=== PATIENT | female | born 1980 | race Caucasian/White ===

== ENCOUNTER 2024-01-24 19:31 | Emergency (ER) | payer OTHER, MEDICAID, SELFPAY ==
--- NOTE | ~2024-01-24 | CT_ITS ---
EXAMINATION: CT ABDOMEN AND PELVIS WITHOUT CONTRAST CLINICAL INFORMATION: Flank pain. COMPARISON: None available. TECHNIQUE: Multidetector volumetric imaging was performed from the superior aspect of the liver through the pubic symphysis. Sagittal and coronal reformatted images were obtained on the 3 mm distal right ureteric calculus. Workstation. This CT examination was performed using dose optimization techniques as appropriate, variously including the following: *Automated exposure control *Adjustment of mA and/or kV according to patient size (this includes techniques or standardized protocols for targeted exams where dose is matched to indication/reason for exam; i.e. extremities or head) *Use of iterative reconstruction technique DLP: 503 mGy-cm FINDINGS: LUNG BASES: The visualized lung bases are unremarkable. LIVER, GALLBLADDER, AND BILIARY TREE: The liver is normal in size, shape, and attenuation. No focal hepatic lesion or biliary ductal dilatation is present. The gallbladder is unremarkable with no evidence of radiopaque gallstones, gallbladder wall thickening, or obvious pericholecystic inflammatory changes. PANCREAS: Unremarkable. SPLEEN: Unremarkable. ADRENAL GLANDS: Unremarkable. KIDNEYS AND URETERS: The kidneys are normal in size, shape, and attenuation. No renal calculi are seen. There is mild right hydronephrosis and hydroureter extending into the pelvis to the level of a 3 mm distal right ureteric calculus. BLADDER: Unremarkable. GASTROINTESTINAL TRACT: The small and large bowel are unremarkable. The appendix is unremarkable. ABDOMINAL WALL: No significant hernia is appreciated. LYMPH NODES: Normal. VASCULAR: Unremarkable. PELVIC VISCERA: There is a small amount of free fluid within the pelvis. OSSEOUS STRUCTURES: There is moderate L5-S1 disc degenerative change. CT/CT abdomen pelvis wo IV con IMPRESSION: 1. There is mild right hydronephrosis and hydroureter extending into the pelvis to the level of a 3 mm distal right ureteric calculus. 2. There is a small amount of free fluid within the pelvis. 3. There is moderate L5-S1 disc degenerative change. Fleischner guidelines were followed. Electronically signed by: Gopal Hunter MD 01/25/2024 02:07 AM CAR
--- NOTE | ~2024-01-24 | XR_ITS ---
EXAMINATION: XR LUMBOSACRAL SPINE CLINICAL INFORMATION: pain, worse on R, x 2 wks COMPARISON: None available. TECHNIQUE: Three views of the lumbosacral spine. FINDINGS: There are 5 nonrib-bearing lumbar vertebrae. Lumbar spinal alignment is anatomic in the sagittal projection. Vertebral body heights are preserved. There is moderate narrowing of the L5-S1 intervertebral disc space. There is endplate sclerosis at this level. There is mild facet arthropathy at this level. No acute fracture. The sacroiliac joints are intact. Paraspinal soft tissue is normal in appearance. XR/XR lumbar spine 2-3V IMPRESSION: No acute osseous lumbar spine abnormality. Degenerative disease at L5-S1. Electronically signed by: Toño Castro DO 01/24/2024 09:44 PM EST
[2024-01-24 19:55] VITALS: BP 143/76; PULSE 77; RESP 18; TEMP 37; O2SAT 98; BMI 23.4
--- NOTE | 2024-01-24 19:58 | ED.GENADULT ---
HPI - General Adult General Chief complaint: Back Pain/Injury Stated complaint: lower back pain x 2 wks Time Seen by Provider: 01/24/24 21:14 Source: patient Mode of arrival: ambulatory Limitations: no limitations History of Present Illness ED Provider: Rebecca Allen NP HPI narrative: patient is a 43-year-old female presents emergency department for evaluation. She reports that she has had issues with intermittent back pain over the past year so. Over the past 2 weeks she has been experiencing pain particularly to her right lower back / flank. Pain is now radiating to her mid lower abdomen described as a burning sensation. Over the past 2 days pain has been severe and more constant. Reports that she was evaluated at an urgent care multiple times for this, has been checked for urinary tract infection which has been negative. Denies recent precipitating injury, fevers, chills, burning with micturition, urinary frequency/urgency/hesitancy, bladder or bowel dysfunction, numbness or tingling of the perineum or bilateral legs. Denies any recent surgical procedures, any known immune compromising conditions, personal history of cancer, or IV drug usage. Related Data Home Medications ?Medication ?Instructions ?Recorded ?Confirmed alprazolam 0.5 mg disintegrating 0.5 mg PO BEDTIME PRN 10/02/21 tablet alprazolam 0.5 mg tablet (Xanax) 0.5 mg PO BEDTIME PRN 10/02/21 bupropion HCl 300 mg 24 hr tablet, 300 mg PO QAM 10/02/21 extended release (Wellbutrin XL) buspirone 10 mg tablet 10 mg PO BID 10/02/21 citalopram 40 mg tablet (Celexa) 40 mg PO DAILY 10/02/21 levothyroxine 100 mcg tablet 100 mcg PO DAILY 10/02/21 (Levo-T) oxybutynin chloride 5 mg tablet 5 mg PO BEDTIME PRN 10/02/21 Previous Rx's ?Medication ?Instructions ?Recorded ciprofloxacin HCl 250 mg tablet 250 mg PO BID 3 days #6 tabs 10/02/21 (Cipro) phenazopyridine 100 mg tablet 100 mg PO TID PRN pain 3 days #9 10/02/21 (Pyridium) tabs morphine 15 mg immediate release 15 mg PO Q6H PRN pain #7 tabs 01/25/24 tablet naproxen 500 mg tablet (Naprosyn) 500 mg PO BID PRN pain #14 tabs 01/25/24 tamsulosin 0.4 mg capsule 0.4 mg PO BEDTIME #14 caps 01/25/24 Allergies Allergy/AdvReac Type Severity Reaction Status Date / Time acetaminophen [From Percocet] Allergy Intermediate nausea, Verified 01/24/24 19:58 vomiting oxycodone [From Percocet] Allergy Intermediate nausea, Verified 01/24/24 19:58 vomiting Review of Systems Review of Systems: Yes all other systems are reviewed and are negative [facility] Past Medical History Attestation statement: The following information was validated with the patient. Source: old records reviewed Social History Social History Advance Directives: No Advance Directives Information Provided: No Patient : No Physical Exam ED Vital Signs: Vital Signs - 24 hr 01/24/24 19:55 01/24/24 22:59 01/24/24 23:04 Temperature 98.6 F 98.3 F 97.9 F Pulse Rate 77 85 69 Respiratory Rate 18 16 18 Blood Pressure 143/76 H 149/85 H 124/89 Pulse Oximetry 98 98 Oxygen Delivery Method Room Air Room Air BMI result Body Mass Index 23.4 Appearance: Alert.?Oriented to person, place and time. No acute distress.?Normal affect. Eyes: Pupils equal, round and reactive to light.? ENT: Pharynx normal.?? Neck: Normal inspection.? Neck supple.?? CVS: Heart sounds normal. Normal heart rate and rhythm.? Pulses normal; bilateral radial pulses 2+, bilateral posterior tibial/dorsalis pedis pulses 2+.? Respiratory: No respiratory distress.? Lung sounds clear to auscultation bilaterally?? Abdomen: Soft and non-tender. Normoactive bowel sounds. No pulsatile mass.?? Skin: Skin warm and dry.? Normal skin color.? Normal skin turgor.?? Extremities: No lower extremity edema.? No calf ttp? Back: + mild paraspinal muscular tenderness from lumbar region to coccyx. Right CVA tenderness. No midline spinal tenderness, step-off's, or deformity. Full ROM intact in bilateral lower extremities. Straight leg test negative on right; Straight leg test negative on left. No rashes, lesions, areas of induration or fluctuance, or signs of infection noted., Neuro: Moves all extremities spontaneously. 5/5 strength in hip extension/flexion, abduction, adduction. Sensation to light touch intact bilaterally. Patellar and Achilles reflex 2+ bilaterally. No ataxia, gait normal and steady.. No focal neuro deficits. Course Course Course Narrative: This is a rapid medical exam performed by Fred Park NP: Additional HPI, ROS, PE not included below will be deferred to primary provider. Patient is a 43-year-old female presenting to the ED with complaint of right lower back pain for the past 2 weeks. Denies fall or other trauma. Seen at urgent care initially, told not a UTI. Returned to today and medicated with Toradol shot. Pain continuing. Denies saddle anesthesia/bowel/bladder incontinence. Plan: xray Medications Administered Discontinued Medications Generic Name Dose Route Start Last Admin Trade Name Freq PRN Reason Stop Dose Admin Ketorolac Tromethamine 15 mg 01/24/24 22:51 01/24/24 23:06 Ketorolac Tromethamine 15 Mg/Ml Vial IVPUSH 01/24/24 22:52 15 mg ONCE ONE Administration Medical Decision Making Medical Decision Making [facility] Narrative: patient is a 43 old female presents emergency department for evaluation, has been experiencing acute on chronic back pain as per HPI, over the past 2 weeks pain to the right flank has been more severe, previously intermittent in nature but constant over the past 2 days now radiating to the mid lower abdomen. Is notable right CVAT, urinalysis obtained prior to my assumption of care reveals microscopic hematuria she is not currently menstruating. Urinalysis is not otherwise compelling for urinary tract infection and were hCG is negative The pain is unlikely secondary to ectopic . XR of the lumbar spine reveals degenerative disease at L5-S1, no acute fracture. Serum labs are without leukocytosis, has a mild normocytic anemia that does not meet transfusion criteria, thrombocytopenia. No electrolyte derangement. No PATRICK. LFTs within normal range. CT abdomen and pelvis reveals mild right hydro and hydroureter with a 3 mm distal right ureteral calculus like all. Reviewed these findings with the patient, pain secondary to renal colic most likely. Discussed plan care for outpatient treatment, follow-up with urology and strict return precautions. All questions answered. Differential Diagnosis Differential Diagnoses: The differential diagnosis associated with the presentation includes ( see narrative above) Admission/Observation Consideration of admission/observation: Escalation of care including admission/observation considered ( see narrative above) Lab Data MDM Lab Attestation statement: I reviewed the patient's lab results. ( see narrative above) 01/24/24 23:13 01/24/24 23:13 Labs: Lab Results 01/24/24 01/24/24 Range/Units 20:47 23:13 WBC 10.2 (4.8-10.8) X10*3/uL RBC 4.06 L (4.20-5.50) X10*6/uL Hgb 11.9 L (12.0-16.0) g/dl Hct 35.2 L (37.0-47.0) % MCV 86.7 (80.0-98.0) fL MCH 29.3 (27.0-33.0) pg MCHC 33.8 (31.0-35.0) g/dl RDW 13.1 (11.0-16.0) % Plt Count 289 (160-400) X10*3/uL MPV 8.2 L (9.4-12.3) fL Immature Gran % (Auto) 0.3 (0.0-0.4) % Neut % (Auto) 59.2 (45-73) % Lymph % (Auto) 31.0 (20-40) % [place] % (Auto) 5.7 (2-11) % Eos % (Auto) 3.1 (0-4) % Baso % (Auto) 0.7 (0-2) % Lymph # (Auto) 3.2 (1.2-4.9) X10*3/uL [place] # (Auto) 0.6 (0.1-1.2) X10*3/uL Eos # (Auto) 0.3 (0.0-0.4) X10*3/uL Baso # (Auto) 0.1 (0.0-0.2) X10*3/uL Abs Immat Gran (auto) 0.03 (0.00-0.03) X10*3/uL Absolute Neuts (auto) 6.0 (2.0-8.3) x10*3/uL Absolute Nucleated RBC 0.000 (0.0-0.012) X10*3/uL Nucleated RBC % (auto) 0.0 (0.0-0.2) /100WBC Sodium 138 (135-145) mmol/L Potassium 3.7 (3.3-5.1) mmol/L Chloride 104 (96-108) mmol/L Carbon Dioxide 27 (22-29) mmol/L Anion Gap 11 L (12-20) BUN 15 (9-16) mg/dL Creatinine 0.73 (0.5-1.4) mg/dL Estim Creat Clear Calc 93.0 Estimated GFR > 60 Random Glucose 97 (60-115) mg/dL Calcium 9.5 (8.4-10.2) mg/dL Total Bilirubin 0.2 (0.0-1.0) mg/dL AST 28 (5-31) U/L ALT 24 (0-31) U/L Alkaline Phosphatase 44 (39-117) U/L Total Protein 6.9 (6.5-8.0) g/dL Albumin 4.2 (3.5-5.0) g/dL Urine Color Yellow Urine Appearance Clear Urine pH 6.0 (5.0-9.0) Ur Specific [place] 1.020 (1.005-1.025) Urine Protein Negative (Neg-Trace) mg/dL Urine Glucose (UA) Negative (Negative) mg/dL Urine Ketones Trace (Negative) mg/dL Urine Blood Trace H (Negative) Urine Nitrite Negative (Negative) Ur Leukocyte Esterase Trace H (Negative) Urine RBC 0-2 (0-2) /HPF Urine WBC 0-5 (0-5) /HPF Ur Squamous Epith Cells 6-10 (0-2) /HPF Urine Bacteria Trace (None Seen) Hyaline Casts 0-2 (0-2) /LPF Urine Yeast Present Urine Test NEGATIVE (NEGATIVE) Radiology Impression Discussion of test interpretation with radiology: I have reviewed the radiologist's reading. Radiologist Impression: XR/XR lumbar spine 2-3V IMPRESSION: No acute osseous lumbar spine abnormality. Degenerative disease at L5-S1. CT/CT abdomen pelvis wo IV con IMPRESSION: 1. There is mild right hydronephrosis and hydroureter extending into the pelvis to the level of a 3 mm distal right ureteric calculus. 2. There is a small amount of free fluid within the pelvis. 3. There is moderate L5-S1 disc degenerative change. External Record Review External record reviewed: Other I attest that I have reviewed patients Mass[employer], and at the time prescribing the patient a controlled substance is appropriate based off of patients diagnosis and treatment plan. advised against usage of morphine tablets using junction with Xanax. Prescription Management I considered prescription management with: Pain Medication Discharge Plan Discharge Clinical Impression: Right ureteral calculus Patient Disposition: Home, Self-Care Instructions: How to Strain Your Urine (ED), Ureteral Stones (ED) Additional Instructions: you have a stone in your right ureter which is the tube that drains the urine from your kidney to your bladder. As kidney stones knees along. Your urinary tract can be very painful. It can have an intermittent pain as you have previously experienced and at times the pain may become more severe. Stone is small enough that you should be able to pass it on your own. Contact urology office 1st thing tomorrow morning to arrange for a follow-up visit. I have sent prescriptions for medication to your pharmacy that include the followin. Tamsulosin /Flomax, take this daily at bedtime to help dilate the ureter to allow for easier passage of the stone. 2. Naproxen/ aleave, this is an NSAID to help alleviate pain. Do not take additional [id number] NSAIDs such as ibuprofen/ Motrin / Advil while taking this medication. 3. For Severe pain that is unrelieved by the naproxen I have sent a prescription for morphine tablets. This is a narcotic medication. It can be addictive. This may make you drowsy. You should not drive, drink alcohol, or work while taking this medication. DO NOT TAKE THIS WITH YOUR XANAX Prescriptions: New tamsulosin 0.4 mg capsule 0.4 mg PO BEDTIME Qty: 14 0RF naproxen [Naprosyn] 500 mg tablet 500 mg PO BID PRN (Reason: pain) Qty: 14 0RF morphine 15 mg tablet 15 mg PO Q6H PRN (Reason: pain) Qty: 7 0RF Rx Instructions: Partial Fill upon patient request. No Action citalopram [Celexa] 40 mg tablet 40 mg PO DAILY bupropion HCl [Wellbutrin XL] 300 mg tablet extended release 24 hr 300 mg PO QAM alprazolam [Xanax] 0.5 mg tablet 0.5 mg PO BEDTIME PRN buspirone 10 mg tablet 10 mg PO BID levothyroxine [Levo-T] 100 mcg tablet 100 mcg PO DAILY oxybutynin chloride 5 mg tablet 5 mg PO BEDTIME PRN alprazolam 0.5 mg tablet,disintegrating 0.5 mg PO BEDTIME PRN phenazopyridine [Pyridium] 100 mg tablet 100 mg PO TID PRN (Reason: pain) 3 Days Qty: 9 0RF ciprofloxacin HCl [Cipro] 250 mg tablet 250 mg PO BID 3 Days Qty: 6 0RF Referrals: Terra Early MD [Physician] - Print Language: Tajik
[2024-01-24 20:55] LABS: Appearance Urine Clear; Color Urine Yellow; Glucose Urine UA Negative (Negative); Leukocyte Esterase Urine Trace (Negative); Nitrite Urine Negative (Negative); UMIC TRIGGER UACC YES; Urine Blood Trace (Negative); Urine Ketones Trace mg/dL (Negative); Urine Protein Negative (Neg-Trace)
[2024-01-24 20:56] LABS: UPreg QC Valid YES; Urine Pregnancy NEGATIVE (NEGATIVE)
[2024-01-24 21:13] LABS: Bacteria Urine Trace (None Seen); Hyaline Casts Urine 0-2 /LPF (0-2); RBC Urine 0-2 /HPF (0-2); WBC Urine 0-5 /HPF (0-5)
--- NOTE | 2024-01-24 22:56 | PC.NURSE ---
pt taken to CT scan
[2024-01-24 22:59] VITALS: BP 149/85; PULSE 85; RESP 16; TEMP 36.8; O2SAT 98
--- NOTE | 2024-01-24 23:01 | PC.NURSE ---
per MD Allen- okay to admin toradol IM
[2024-01-24 23:04] VITALS: BP 124/89; PULSE 69; RESP 18; TEMP 36.6
[2024-01-24] MEDS: Ketorolac Tromethamine 15 MG/ML VIAL IVPUSH (23:06)
--- NOTE | 2024-01-24 23:10 | PC.NURSE ---
pt medciated per MAR
[2024-01-24 23:18] LABS: MANUAL DIFF FLAG NO
[2024-01-24 23:19] LABS: Basophils Absolute Auto 0.1 X10*3/uL (0.0-0.2); Basophils Percent Auto 0.7 % (0-2); Eosinophils Absolute Auto 0.3 X10*3/uL (0.0-0.4); Eosinophils Percent Auto 3.1 % (0-4); Hematocrit 35.2 % (37.0-47.0); Hemoglobin 11.9 g/dl (12.0-16.0); Imm Gran Abs Auto 0.03 X10*3/uL (0.00-0.03); Imm Gran Pct Auto 0.3 % (0.0-0.4); Lymphocytes Absolute Auto 3.2 X10*3/uL (1.2-4.9); Mean Corpuscular HGB Conc 33.8 g/dl (31.0-35.0); Mean Corpuscular Hemoglobin 29.3 pg (27.0-33.0); Mean Corpuscular Volume 86.7 fL (80.0-98.0); Mean Platelet Volume 8.2 fL (9.4-12.3); Monocytes Absolute Auto 0.6 X10*3/uL (0.1-1.2); Monocytes Percent Auto 5.7 % (2-11); Neutrophils Percent Auto 59.2 % (45-73); Platelet Count 289 X10*3/uL (160-400); Red Blood Count 4.06 X10*6/uL (4.20-5.50); Red Cell Distribution Width 13.1 % (11.0-16.0); White Blood Count 10.2 X10*3/uL (4.8-10.8)
[2024-01-24 23:34] LABS: Alanine Aminotransferase 24 U/L (0-31); Albumin Level 4.2 g/dL (3.5-5.0); Alkaline Phosphatase 44 U/L (39-117); Anion Gap 11 (12-20); Aspartate Amino Transferase 28 U/L (5-31); Bilirubin Total 0.2 mg/dL (0.0-1.0); Blood Urea Nitrogen 15 mg/dL (9-16); Calcium 9.5 mg/dL (8.4-10.2); Carbon Dioxide 27 mmol/L (22-29); Chloride 104 mmol/L (96-108); Estimated Glomerular Filt Rate > 60; Glucose Random 97 mg/dL (60-115); Potassium 3.7 mmol/L (3.3-5.1); Sodium 138 mmol/L (135-145); Total Protein 6.9 g/dL (6.5-8.0)
[2024-01-25 02:28] VITALS: BP 124/89; PULSE 69; RESP 18; TEMP 36.6; O2SAT 98
== END 2024-01-25 02:31 | disposition home or self-care (01) ==
PROVIDERS: Nurse Practitioner Family; Registered Nurse Emergency; Emergency Provider Emergency Medicine; PCP Physician Assistant
DX: N20.1 Calculus of ureter (principal); M54.50 Low back pain, unspecified; R10.2 Pelvic and perineal pain; Z79.899 Other long term (current) drug therapy
CPT/HCPCS: 36415; 72100; 74176; 80053; 81001; 81025; 85025; 96374; 99284; J1885

== ENCOUNTER 2024-04-02 13:31 | Emergency (ER) | payer OTHER, MEDICAID, SELFPAY ==
--- NOTE | ~2024-04-02 | CT_ITS ---
CLINICAL HISTORY: right sided abd pain Exam: CT abdomen and pelvis with intravenous contrast. Comparison: January 24, 2024. Findings: CT abdomen: No infiltrates are identified within the lung bases. Unchanged densely calcified 4 mm granuloma within the left lower lobe. No acute bony lesions. Low-attenuation within the liver adjacent to the falciform ligament is indicative of focal fatty infiltration. No concerning hepatic mass lesion. Main portal vein is patent. Spleen, pancreas, gallbladder, and adrenal glands are unremarkable. Right-sided hydronephrosis on prior study is improved. However, there remains mild right hydronephrosis and right hydroureter. There is hyperenhancement of the distal right ureter at the level of a 3 mm calculus at the right ureterovesicular junction. No stones are seen within the right kidney. Left kidney is unremarkable. Small bowel loops are of normal caliber. No free fluid or free air. CT pelvis: Urinary bladder is moderately distended. No bladder calculi. No colonic wall thickening or pericolonic inflammatory stranding. No free fluid or free air. Impression: Mild right hydronephrosis and right hydroureter secondary to a 3 mm right ureterovesicular junction calculus. This document has been electronically signed by: Pawel Ibanez MD on 04/02/2024 23:02:20
[2024-04-02 14:02] VITALS: BP 125/83; PULSE 85; RESP 18; TEMP 36.7; O2SAT 100; BMI 25.2
--- NOTE | 2024-04-02 14:02 | ED_ITS ---
HPI - Abdominal Pain General Chief Complaint: Abdominal Pain Stated Complaint: LRQ pain vomiting Time Seen by Provider: 04/02/24 19:17 Related Data Home Medications ?Medication ?Instructions ?Recorded ?Confirmed alprazolam 0.5 mg disintegrating 0.5 mg PO BEDTIME PRN 10/02/21 tablet alprazolam 0.5 mg tablet (Xanax) 0.5 mg PO BEDTIME PRN 10/02/21 bupropion HCl 300 mg 24 hr tablet, 300 mg PO QAM 10/02/21 extended release (Wellbutrin XL) buspirone 10 mg tablet 10 mg PO BID 10/02/21 citalopram 40 mg tablet (Celexa) 40 mg PO DAILY 10/02/21 levothyroxine 100 mcg tablet 100 mcg PO DAILY 10/02/21 (Levo-T) oxybutynin chloride 5 mg tablet 5 mg PO BEDTIME PRN 10/02/21 Previous Rx's ?Medication ?Instructions ?Recorded ciprofloxacin HCl 250 mg tablet 250 mg PO BID 3 days #6 tabs 10/02/21 (Cipro) phenazopyridine 100 mg tablet 100 mg PO TID PRN pain 3 days #9 10/02/21 (Pyridium) tabs morphine 15 mg immediate release 15 mg PO Q6H PRN pain #7 tabs 01/25/24 tablet naproxen 500 mg tablet (Naprosyn) 500 mg PO BID PRN pain #14 tabs 01/25/24 tamsulosin 0.4 mg capsule 0.4 mg PO BEDTIME #14 caps 01/25/24 ibuprofen 400 mg tablet 400 mg PO Q6H PRN pain #20 tabs 04/02/24 ondansetron 4 mg disintegrating 4 mg PO TID PRN nausea and 04/02/24 tablet vomiting 5 days #10 tabs oxycodone 5 mg tablet 5 mg PO Q8H PRN pain #7 tabs 04/02/24 tamsulosin 0.4 mg capsule (Flomax) 0.4 mg PO DAILY #7 caps 04/02/24 Allergies Allergy/AdvReac Type Severity Reaction Status Date / Time acetaminophen [From Percocet] Allergy Intermediate nausea, Verified 04/02/24 14:05 vomiting oxycodone [From Percocet] Allergy Intermediate nausea, Verified 04/02/24 14:05 vomiting PMFSH Social History Social History Smoked in Last 30 Days: No Use of substances other than those prescribed or required for medical reasons: No Advance Directives: No Advance Directives Information Provided: No Do you have a plan to hurt others: No Plan Patient : No Physical Exam ED Vital Signs: Vital Signs - 24 hr 04/02/24 14:02 04/02/24 19:26 04/02/24 22:00 Temperature 98.1 F 98.3 F 98.5 F Pulse Rate 85 78 71 Respiratory Rate 18 17 18 Blood Pressure 125/83 130/71 114/75 Pulse Oximetry 100 100 100 Oxygen Delivery Method Room Air Room Air Room Air BMI result Body Mass Index 25.2 Course Course Course Narrative: This is a Rapid Medical Exam performed in triage by Jayleen Whiteside PA-C. Full HPI, ROS and PE to be performed by primary ED provider. 43yo F presenting to the ED c/o RLQ abdominal pain, N/V/D, urinary frequency x today after eating cereal. denies brbpr or hemetemasis, fever, chills PE: abdomen soft, +RLQ ttp, no rebound or guarding Plan: labs, UA Medical Decision Making Lab Data 04/02/24 14:21 04/02/24 14:21 Labs: Lab Results 04/02/24 04/02/24 Range/Units 14:21 19:34 WBC 9.3 (4.8-10.8) X10*3/uL RBC 4.13 L (4.20-5.50) X10*6/uL Hgb 12.0 (12.0-16.0) g/dl Hct 36.5 L (37.0-47.0) % MCV 88.4 (80.0-98.0) fL MCH 29.1 (27.0-33.0) pg MCHC 32.9 (31.0-35.0) g/dl RDW 13.2 (11.0-16.0) % Plt Count 291 (160-400) X10*3/uL MPV 8.6 L (9.4-12.3) fL Immature Gran % (Auto) 0.4 (0.0-0.4) % Neut % (Auto) 69.9 (45-73) % Lymph % (Auto) 18.9 L (20-40) % [place] % (Auto) 5.9 (2-11) % Eos % (Auto) 4.1 H (0-4) % Baso % (Auto) 0.8 (0-2) % Lymph # (Auto) 1.8 (1.2-4.9) X10*3/uL [place] # (Auto) 0.6 (0.1-1.2) X10*3/uL Eos # (Auto) 0.4 (0.0-0.4) X10*3/uL Baso # (Auto) 0.1 (0.0-0.2) X10*3/uL Abs Immat Gran (auto) 0.04 H (0.00-0.03) X10*3/uL Absolute Neuts (auto) 6.5 (2.0-8.3) x10*3/uL Absolute Nucleated RBC 0.000 (0.0-0.012) X10*3/uL Nucleated RBC % (auto) 0.0 (0.0-0.2) /100WBC Sodium 141 (135-145) mmol/L Potassium 3.7 (3.3-5.1) mmol/L Chloride 108 (96-108) mmol/L Carbon Dioxide 28 (22-29) mmol/L Anion Gap 9 L (12-20) BUN 13 (9-16) mg/dL Creatinine 0.81 (0.5-1.4) mg/dL Estim Creat Clear Calc 84.1 Estimated GFR > 60 Random Glucose 100 (60-115) mg/dL Calcium 9.0 (8.4-10.2) mg/dL Magnesium 2.1 (1.6-2.6) mg/dL Total Bilirubin 0.2 (0.0-1.0) mg/dL Direct Bilirubin < 0.2 (0.0-0.5) mg/dL AST 29 (5-31) U/L ALT 25 (0-31) U/L Alkaline Phosphatase 42 (39-117) U/L Total Protein 7.2 (6.5-8.0) g/dL Albumin 4.1 (3.5-5.0) g/dL Lipase 18 (8-78) U/L Urine Color Yellow Urine Appearance Clear Urine pH 7.0 (5.0-9.0) Ur Specific [place] 1.010 (1.005-1.025) Urine Protein Negative (Neg-Trace) mg/dL Urine Glucose (UA) Negative (Negative) mg/dL Urine Ketones Negative (Negative) mg/dL Urine Blood Negative (Negative) Urine Nitrite Negative (Negative) Ur Leukocyte Esterase Negative (Negative) Urine Test NEGATIVE (NEGATIVE) Medications Administered Discontinued Medications Generic Name Dose Route Start Last Admin Trade Name Freq PRN Reason Stop Dose Admin Sodium Chloride 1,000 mls @ 999 mls/hr 04/02/24 20:00 04/02/24 21:24 Ns IV 04/02/24 21:00 Infused .Q1H1M NOEL Infusion Iohexol 85 ml 04/02/24 22:03 04/02/24 22:03 Iohexol 350 Mg/Ml 100 Ml Infus..Btl IV 04/02/24 22:04 85 ml ONCE ONE Administration Ketorolac Tromethamine 30 mg 04/02/24 19:47 04/02/24 19:54 Ketorolac Tromethamine 30 Mg/Ml Vial IVPUSH 04/02/24 19:48 30 mg ONCE ONE Administration Discharge Plan Discharge Clinical Impression: Renal colic Patient Disposition: Home, Self-Care Instructions: Renal Colic (ED) Prescriptions: New tamsulosin [Flomax] 0.4 mg capsule 0.4 mg PO DAILY Qty: 7 0RF ibuprofen 400 mg tablet 400 mg PO Q6H PRN (Reason: pain) Qty: 20 0RF ondansetron 4 mg tablet,disintegrating 4 mg PO TID PRN (Reason: nausea and vomiting) 5 Days Qty: 10 0RF oxycodone 5 mg tablet 5 mg PO Q8H PRN (Reason: pain) Qty: 7 0RF Rx Instructions: Partial Fill upon patient request. No Action tamsulosin 0.4 mg capsule 0.4 mg PO BEDTIME Qty: 14 0RF naproxen [Naprosyn] 500 mg tablet 500 mg PO BID PRN (Reason: pain) Qty: 14 0RF morphine 15 mg tablet 15 mg PO Q6H PRN (Reason: pain) Qty: 7 0RF Rx Instructions: Partial Fill upon patient request. citalopram [Celexa] 40 mg tablet 40 mg PO DAILY bupropion HCl [Wellbutrin XL] 300 mg tablet extended release 24 hr 300 mg PO QAM alprazolam [Xanax] 0.5 mg tablet 0.5 mg PO BEDTIME PRN buspirone 10 mg tablet 10 mg PO BID levothyroxine [Levo-T] 100 mcg tablet 100 mcg PO DAILY oxybutynin chloride 5 mg tablet 5 mg PO BEDTIME PRN alprazolam 0.5 mg tablet,disintegrating 0.5 mg PO BEDTIME PRN phenazopyridine [Pyridium] 100 mg tablet 100 mg PO TID PRN (Reason: pain) 3 Days Qty: 9 0RF ciprofloxacin HCl [Cipro] 250 mg tablet 250 mg PO BID 3 Days Qty: 6 0RF Referrals: Nate Calabrese MD [Physician] - 04/05/24 Print Language: Ukrainian
[2024-04-02 14:25] LABS: MANUAL DIFF FLAG NO
[2024-04-02 14:26] LABS: Basophils Absolute Auto 0.1 X10*3/uL (0.0-0.2); Basophils Percent Auto 0.8 % (0-2); Eosinophils Absolute Auto 0.4 X10*3/uL (0.0-0.4); Eosinophils Percent Auto 4.1 % (0-4); Hematocrit 36.5 % (37.0-47.0); Imm Gran Abs Auto 0.04 X10*3/uL (0.00-0.03); Imm Gran Pct Auto 0.4 % (0.0-0.4); Lymphocytes Absolute Auto 1.8 X10*3/uL (1.2-4.9); Lymphocytes Percent Auto 18.9 % (20-40); Mean Corpuscular HGB Conc 32.9 g/dl (31.0-35.0); Mean Corpuscular Hemoglobin 29.1 pg (27.0-33.0); Mean Corpuscular Volume 88.4 fL (80.0-98.0); Mean Platelet Volume 8.6 fL (9.4-12.3); Monocytes Absolute Auto 0.6 X10*3/uL (0.1-1.2); Monocytes Percent Auto 5.9 % (2-11); Neutrophils Absolute Auto 6.5 x10*3/uL (2.0-8.3); Neutrophils Percent Auto 69.9 % (45-73); Platelet Count 291 X10*3/uL (160-400); Red Blood Count 4.13 X10*6/uL (4.20-5.50); Red Cell Distribution Width 13.2 % (11.0-16.0); White Blood Count 9.3 X10*3/uL (4.8-10.8)
[2024-04-02 14:45] LABS: Alanine Aminotransferase 25 U/L (0-31); Albumin Level 4.1 g/dL (3.5-5.0); Anion Gap 9 (12-20); Aspartate Amino Transferase 29 U/L (5-31); Bilirubin Direct < 0.2 mg/dL (0.0-0.5); Bilirubin Total 0.2 mg/dL (0.0-1.0); Blood Urea Nitrogen 13 mg/dL (9-16); Carbon Dioxide 28 mmol/L (22-29); Chloride 108 mmol/L (96-108); Creatinine Clr Calc Pharmacy 84.1; Estimated Glomerular Filt Rate > 60; Glucose Random 100 mg/dL (60-115); Lipase 18 U/L (8-78); Magnesium 2.1 mg/dL (1.6-2.6); Potassium 3.7 mmol/L (3.3-5.1); Sodium 141 mmol/L (135-145); Total Protein 7.2 g/dL (6.5-8.0)
[2024-04-02 15:39] LABS: Alkaline Phosphatase 42 U/L (39-117)
[2024-04-02 19:26] VITALS: BP 130/71; PULSE 78; RESP 17; TEMP 36.8; O2SAT 100
--- NOTE | 2024-04-02 19:28 | PC.NURSE ---
pt a&ox4, respirations even and unlabored. pt reports bringing son to school and then developing sudden onset of lower left quadrant pain with n/v/d. pt denies any sick contacts at this time. pt reports she is on her period but reports she has never felt this pain in the past. vss.
--- NOTE | 2024-04-02 19:37 | PC.NURSE ---
pt ambulatory to bathroom with steady gait, urine sample obtained and sent to lab.
--- NOTE | 2024-04-02 19:51 | ED.ABDPAIN ---
HPI - Abdominal Pain General Chief Complaint: Abdominal Pain Stated Complaint: LRQ pain vomiting Time Seen by Provider: 04/02/24 19:17 History of Present Illness HPI narrative: Patient is a 43-year-old female presents today with having right-sided abdominal pain. The pain is dull. It radiates to the right flank area. Had 2 bouts of diarrhea associated with it. Positive nausea. Positive vomiting that is mostly consistent with food. No fever no chills. Did not miss her menstruation. No vaginal discharge. Does not think she is . Previous appendectomy in the past. No coughing or congestion or upper respiratory symptoms. No diaphoresis. Related Data Home Medications ?Medication ?Instructions ?Recorded ?Confirmed alprazolam 0.5 mg disintegrating 0.5 mg PO BEDTIME PRN 10/02/21 tablet alprazolam 0.5 mg tablet (Xanax) 0.5 mg PO BEDTIME PRN 10/02/21 bupropion HCl 300 mg 24 hr tablet, 300 mg PO QAM 10/02/21 extended release (Wellbutrin XL) buspirone 10 mg tablet 10 mg PO BID 10/02/21 citalopram 40 mg tablet (Celexa) 40 mg PO DAILY 10/02/21 levothyroxine 100 mcg tablet 100 mcg PO DAILY 10/02/21 (Levo-T) oxybutynin chloride 5 mg tablet 5 mg PO BEDTIME PRN 10/02/21 Previous Rx's ?Medication ?Instructions ?Recorded ciprofloxacin HCl 250 mg tablet 250 mg PO BID 3 days #6 tabs 10/02/21 (Cipro) phenazopyridine 100 mg tablet 100 mg PO TID PRN pain 3 days #9 10/02/21 (Pyridium) tabs morphine 15 mg immediate release 15 mg PO Q6H PRN pain #7 tabs 01/25/24 tablet naproxen 500 mg tablet (Naprosyn) 500 mg PO BID PRN pain #14 tabs 01/25/24 tamsulosin 0.4 mg capsule 0.4 mg PO BEDTIME #14 caps 01/25/24 ibuprofen 400 mg tablet 400 mg PO Q6H PRN pain #20 tabs 04/02/24 ondansetron 4 mg disintegrating 4 mg PO TID PRN nausea and 04/02/24 tablet vomiting 5 days #10 tabs oxycodone 5 mg tablet 5 mg PO Q8H PRN pain #7 tabs 04/02/24 tamsulosin 0.4 mg capsule (Flomax) 0.4 mg PO DAILY #7 caps 04/02/24 Allergies Allergy/AdvReac Type Severity Reaction Status Date / Time acetaminophen [From Percocet] Allergy Intermediate nausea, Verified 04/02/24 14:05 vomiting oxycodone [From Percocet] Allergy Intermediate nausea, Verified 04/02/24 14:05 vomiting Review of Systems Review of Systems Positive abdominal pain Yes all other systems are reviewed and are negative [facility] Past Medical History Attestation statement: The following information was validated with the patient. Social History Social History Smoked in Last 30 Days: No Use of substances other than those prescribed or required for medical reasons: No Advance Directives: No Advance Directives Information Provided: No Do you have a plan to hurt others: No Plan Patient : No Physical Exam ED Vital Signs: Vital Signs - 24 hr 04/02/24 14:02 04/02/24 19:26 04/02/24 22:00 Temperature 98.1 F 98.3 F 98.5 F Pulse Rate 85 78 71 Respiratory Rate 18 17 18 Blood Pressure 125/83 130/71 114/75 Pulse Oximetry 100 100 100 Oxygen Delivery Method Room Air Room Air Room Air BMI result Body Mass Index 25.2 Appearance: Alert. Oriented X3. No acute distress. Eyes: Pupils equal, round and reactive to light. ENT: Pharynx normal. Neck: Normal inspection. Neck supple. No lymph nodes noted. No crepitus CVS: Normal heart rate and rhythm. Pulses normal. Normal S1 and S2 Respiratory: No respiratory distress. Breath sounds normal. No Wheezing. No rales Abdomen: Soft and nontender. No rigidity. No distention. good BS x4 Skin: Skin warm and dry. Normal skin color. Normal skin turgor. Extremities: No lower extremity edema. Neurovascular intact to all extremities. No Lacerations. No Rash Neuro: Oriented X 3. No motor deficit. No sensory deficit. Moving all extermities. No slurred speech Medical Decision Making Medical Decision Making MDM Narrative: Patient complaining of right lower quadrant pain radiating to the flank area associated with nausea vomiting. Patient's white count is normal. Electrolytes are unremarkable normal kidney function. Patient's urine showed no blood test negative. CT scan of the abdomen pelvis was done. Positive for a 3 mm UVJ stone on the right side. Likely the cause of patient's pain. There is no urinary tract infection kidney function is normal pain is controlled will discharge patient home. Close follow-up on an outpatient basis with Urology. In stable condition. On reviewing of patient's old record patient had a previous visit in December it showed a kidney stone. This is likely the residual of that. Patient did not follow-up for her kidney stone in December it got better for a while. Now started having the pain again. Explained to patient the need for follow-up. The risk of losing her kidney if it persistently is obstructed. Patient states understanding. Additional pain medication was prescribed to patient. Additional Flomax was prescribed. Explained to patient most likely the stone is stuck. Will need additional intervention to get the stone out. Patient referred to urology. She states understanding of the importance of following up. Getting the kidney stone taking care of. Patient being discharged home pain is controlled. Differential Diagnosis Differential Diagnoses: The differential diagnosis associated with the presentation includes Appendicitis, diverticulitis, kidney stone, obstruction Admission/Observation Consideration of admission/observation: Escalation of care including admission/observation considered Lab Data MDM Lab Attestation statement: I reviewed the patient's lab results. 04/02/24 14:21 04/02/24 14:21 Labs: Lab Results 04/02/24 04/02/24 Range/Units 14:21 19:34 WBC 9.3 (4.8-10.8) X10*3/uL RBC 4.13 L (4.20-5.50) X10*6/uL Hgb 12.0 (12.0-16.0) g/dl Hct 36.5 L (37.0-47.0) % MCV 88.4 (80.0-98.0) fL MCH 29.1 (27.0-33.0) pg MCHC 32.9 (31.0-35.0) g/dl RDW 13.2 (11.0-16.0) % Plt Count 291 (160-400) X10*3/uL MPV 8.6 L (9.4-12.3) fL Immature Gran % (Auto) 0.4 (0.0-0.4) % Neut % (Auto) 69.9 (45-73) % Lymph % (Auto) 18.9 L (20-40) % [place] % (Auto) 5.9 (2-11) % Eos % (Auto) 4.1 H (0-4) % Baso % (Auto) 0.8 (0-2) % Lymph # (Auto) 1.8 (1.2-4.9) X10*3/uL [place] # (Auto) 0.6 (0.1-1.2) X10*3/uL Eos # (Auto) 0.4 (0.0-0.4) X10*3/uL Baso # (Auto) 0.1 (0.0-0.2) X10*3/uL Abs Immat Gran (auto) 0.04 H (0.00-0.03) X10*3/uL Absolute Neuts (auto) 6.5 (2.0-8.3) x10*3/uL Absolute Nucleated RBC 0.000 (0.0-0.012) X10*3/uL Nucleated RBC % (auto) 0.0 (0.0-0.2) /100WBC Sodium 141 (135-145) mmol/L Potassium 3.7 (3.3-5.1) mmol/L Chloride 108 (96-108) mmol/L Carbon Dioxide 28 (22-29) mmol/L Anion Gap 9 L (12-20) BUN 13 (9-16) mg/dL Creatinine 0.81 (0.5-1.4) mg/dL Estim Creat Clear Calc 84.1 Estimated GFR > 60 Random Glucose 100 (60-115) mg/dL Calcium 9.0 (8.4-10.2) mg/dL Magnesium 2.1 (1.6-2.6) mg/dL Total Bilirubin 0.2 (0.0-1.0) mg/dL Direct Bilirubin < 0.2 (0.0-0.5) mg/dL AST 29 (5-31) U/L ALT 25 (0-31) U/L Alkaline Phosphatase 42 (39-117) U/L Total Protein 7.2 (6.5-8.0) g/dL Albumin 4.1 (3.5-5.0) g/dL Lipase 18 (8-78) U/L Urine Color Yellow Urine Appearance Clear Urine pH 7.0 (5.0-9.0) Ur Specific [place] 1.010 (1.005-1.025) Urine Protein Negative (Neg-Trace) mg/dL Urine Glucose (UA) Negative (Negative) mg/dL Urine Ketones Negative (Negative) mg/dL Urine Blood Negative (Negative) Urine Nitrite Negative (Negative) Ur Leukocyte Esterase Negative (Negative) Urine Test NEGATIVE (NEGATIVE) Independent Interpretation I performed an independent interpretation of an: CT Scan (Right UVJ stone) Radiology Impression Discussion of test interpretation with radiology: I have reviewed the radiologist's reading. External Record Review External record reviewed: Outpatient record Prescription Management I considered prescription management with: Pain Medication Chronic Conditions Previous history of kidney stone Social Determinants Patient?s care significantly limited by Social Determinants of Health including: Problems related to primary support group Medications Administered Discontinued Medications Generic Name Dose Route Start Last Admin Trade Name Freq PRN Reason Stop Dose Admin Sodium Chloride 1,000 mls @ 999 mls/hr 04/02/24 20:00 04/02/24 21:24 Ns IV 04/02/24 21:00 Infused .Q1H1M NOEL Infusion Iohexol 85 ml 04/02/24 22:03 04/02/24 22:03 Iohexol 350 Mg/Ml 100 Ml Infus..Btl IV 04/02/24 22:04 85 ml ONCE ONE Administration Ketorolac Tromethamine 30 mg 04/02/24 19:47 04/02/24 19:54 Ketorolac Tromethamine 30 Mg/Ml Vial IVPUSH 04/02/24 19:48 30 mg ONCE ONE Administration Discharge Plan Discharge Clinical Impression: Renal colic Patient Disposition: Home, Self-Care Instructions: Renal Colic (ED) Prescriptions: New tamsulosin [Flomax] 0.4 mg capsule 0.4 mg PO DAILY Qty: 7 0RF ibuprofen 400 mg tablet 400 mg PO Q6H PRN (Reason: pain) Qty: 20 0RF ondansetron 4 mg tablet,disintegrating 4 mg PO TID PRN (Reason: nausea and vomiting) 5 Days Qty: 10 0RF oxycodone 5 mg tablet 5 mg PO Q8H PRN (Reason: pain) Qty: 7 0RF Rx Instructions: Partial Fill upon patient request. No Action tamsulosin 0.4 mg capsule 0.4 mg PO BEDTIME Qty: 14 0RF naproxen [Naprosyn] 500 mg tablet 500 mg PO BID PRN (Reason: pain) Qty: 14 0RF morphine 15 mg tablet 15 mg PO Q6H PRN (Reason: pain) Qty: 7 0RF Rx Instructions: Partial Fill upon patient request. citalopram [Celexa] 40 mg tablet 40 mg PO DAILY bupropion HCl [Wellbutrin XL] 300 mg tablet extended release 24 hr 300 mg PO QAM alprazolam [Xanax] 0.5 mg tablet 0.5 mg PO BEDTIME PRN buspirone 10 mg tablet 10 mg PO BID levothyroxine [Levo-T] 100 mcg tablet 100 mcg PO DAILY oxybutynin chloride 5 mg tablet 5 mg PO BEDTIME PRN alprazolam 0.5 mg tablet,disintegrating 0.5 mg PO BEDTIME PRN phenazopyridine [Pyridium] 100 mg tablet 100 mg PO TID PRN (Reason: pain) 3 Days Qty: 9 0RF ciprofloxacin HCl [Cipro] 250 mg tablet 250 mg PO BID 3 Days Qty: 6 0RF Referrals: Nate Calabrese MD [Physician] - 04/05/24 Print Language: Serbian
[2024-04-02 19:54] LABS: Appearance Urine Clear; Color Urine Yellow; Glucose Urine UA Negative (Negative); Leukocyte Esterase Urine Negative (Negative); Nitrite Urine Negative (Negative); Urine Blood Negative (Negative); Urine Ketones Negative (Negative); Urine Protein Negative (Neg-Trace)
[2024-04-02] MEDS: Ketorolac Tromethamine 30 MG/ML VIAL IVPUSH (19:54)
[2024-04-02] MEDS: 0.9 % Sodium Chloride 1,000 ML 999 ML IV (19:54)
[2024-04-02 19:56] LABS: UPreg QC Valid YES; Urine Pregnancy NEGATIVE (NEGATIVE)
--- NOTE | 2024-04-02 19:56 | PC.NURSE ---
20G placed in left ac, pt medciated per mar.
[2024-04-02 22:00] VITALS: BP 114/75; PULSE 71; RESP 18; TEMP 36.9; O2SAT 100
[2024-04-02] MEDS: iohexoL 350 MG/ML 100 ML INFUS..BTL 85 ML IV (22:03)
[2024-04-02 23:34] VITALS: BP 114/75; PULSE 71; RESP 18; TEMP 36.9; O2SAT 100
== END 2024-04-02 23:34 | disposition home or self-care (01) ==
PROVIDERS: Physician Assistant; Emergency Provider Emergency Medicine Emergency Medical Services; PCP Physician Assistant
DX: N23 Unspecified renal colic (principal); R11.2 Nausea with vomiting, unspecified; Z79.899 Other long term (current) drug therapy
CPT/HCPCS: 36415; 74177; 80048; 80076; 81003; 81025; 83690; 83735; 85025; 96361; 96374; 99284; 99285; J1885; Q9967

== ENCOUNTER → 2024-04-02 19:47 | Outpatient (BNV) | payer OTHER, MEDICAID, SELFPAY | PROVIDERS: Emergency Provider Emergency Medicine Emergency Medical Services; PCP Physician Assistant; Visit Provider Radiology Diagnostic Radiology | DX: N20.1 Calculus of ureter (principal) | CPT/HCPCS: 74177 ==

== ENCOUNTER 2024-07-16 15:10 | Outpatient (AMB) | payer OTHER, MEDICAID, SELFPAY ==
--- OUTSIDE RECORDS SUMMARY | 2024-07-16 15:13 | XMS_ITS | Encounter Summary ---
Author Organization [facility] Address [address] [place] [address] Care Team Providers Care Sewer Pipe Offbearer Name Role Phone Kye Sampson Primary Care Provider [phone] Encounter Details Date Type Department Care Team (Late st Contact Info) Description 11/25/2020 Orders Only [facility] Nuclear Medicine [address] [place] [address] Torsten Kent MD [address] [place] [address] Social History Tobacco Use Types Packs/Day Years Used Date Smoking Tobacco: Never Smokeless Tobacco: Never Alcohol Use Standard Drinks/Week Comments Not Currently 0 (1 standard drink = 0.6 oz pur e alcohol) Comments Unknown Sex and Gender Information Value Date Recorded Sex Assigned at Female 09/18/2020 5:44 PM EDT Legal Sex Female 8:37 AM EDT Gender Identity Female 09/18/2020 5:44 PM EDT Sexual Orientation Straight 09/18/2020 5: 44 PM EDT documented as of this encounter Plan of Treatment Not on file documented as of this encounter Visit Diagnoses Not on filedocumented in this encounter Care Teams Sewer Pipe Offbearer Relationship Specialty Start Date End Date Kye Sampson [address] [place] [id number] PCP - General Internal Medicine 07/25/20 documented as of this encounter
--- OUTSIDE RECORDS SUMMARY | 2024-07-16 15:13 | XMS_ITS | Clinical Summary ---
Author Organization [facility] Address [address] [place] [address] Care Team Providers Care Development Assistant Name Role Phone Camilla Kye Itz Primary Care Provider [phone] Allergies Active Allergy Reactions Criticality Noted Date Comments Codeine Nausea And Vomiting Medium 05/07/2020 Oxycodone-Acetaminoph en Nausea Medium 02/25/2021 nausea, vomiting, dizziness Pollen Extracts Rhinorrhea High 02/25/2021 Ragweed Pollen Rhinorrhea High 02/25/2021 Medications citalopram (CeleXA) 40 mg tablet Take 40 mg by mouth in the morning. Active levothyroxine (SYNTHROID, LEVOTHROID) 100 mcg tablet Take 100 mcg by mouth in the morning. Active buPROPion XL (WELLBUTRIN XL) 300 mg tablet Take 1 tablet (300 mg total) by mouth every morning. 30 tablet 01/02/2021 Active cyproheptadine (PERIACTIN) 4 mg tablet Take 4 mg by mouth nightly as needed (itching). 02/06/2021 Active ALPRAZolam (XANAX) 0.5 mg tablet Take 0.5 mg by mouth 2 times a day as needed for anxiety. 05/22/2021 Active oxybutynin XL (DITROPAN XL) 5 mg tablet Take 5 mg by mouth once a day. 06/13/2021 Active levocetirizine (XYZAL) 5 mg tablet Take 5 mg by mouth every evening. Active omeprazole (PriLOSEC) 20 mg capsule Take 20 mg by mouth once a day. 08/19/2022 Active rizatriptan (MAXALT) 10 mg tablet Take 10 mg by mouth daily as needed (headache). May repeat dose in 2 hours, max 30 mg daily 05/12/2022 Active polyethylene glycol 3350 (MIRALAX) 17 gram packet Take 17 g by mouth once a day. Mix powder in 4 to 8 oz of water, juice, coffee, or tea prior to administrati on. Active Active Problems Problem Noted Date Diagnosed Date Follow-up examination after neurological surgery 12/22/2021 S/P deep brain stimulator placement 07/08/2021 Essential tremor 08/07/2020 Assessment & Plan (08/07/2020 3:32 PM EDT): Donna presents for assessment of refractory tremor. She reports history of hand tremor since her teenage years. Tremor affects LH>RH and affects all her activities including eating, getting dressed, typing and writing. She also drops objects regularly because of it. She uses weighted utensils which she reports helps somewhat. She has tried multiple medications including propranolol, primidone, alprazolam, clonazepam, phenobarbital and zonisamide without benefit. She also had side effects of grogginess to some of these. Unclear whether topiramate was tried. ROS otherwise notable for depression/anxiety for which she follows with a psychiatrist, memory difficulties and balance issues where she reports tripping occasionally and stumbling but no falls. On exam, she has a bilateral high frequency hand tremor with some irregularity in the LH. LH is 1-2cm and RH is ~1cm. There is mild action component. No clear signs of dysmetria or ataxia. Gait is steady. She is interested in pursuing DBS and has done research on this already. We discussed that she would likely be a good candidate. We would need to evaluate her in- person in the office to perform a full neurological exam and also get neuropsychological testing given her memory difficulties. I discussed that DBS would be unilateral and she would prefer it to be for her LH as that is worse although she is RH dominant. I would also want to rule out any underlying ataxia on exam. Will discuss with Jumana Soriano who is our DBS coordinator to set up visit for 4-6 weeks for pre-DBS screening visit. Would also discuss trial of topiramate with patient given that she has not tried this yet. -requested office notes from [facility] ([facility]) from original neurologist regarding medications tried -consider trial of topiramate -follow-up with Jumana in 4-6 weeks for pre-DBS screening Encounters Date Type Department Care Team Description 06/28/2024 Lot[place]hart Message [facility] [address] [place] [address] Maribell Coon MD PhD MRI 06/22/2024 Lot[employer]hart Message [facility] [address] [place] [address] Jumana Soriano NP Canceled appointment 05/05/2024 Hele Massaget Message [facility] [address] [place] [address] Jumana Soriano, ROSELYN Appointment from Last 3 Months Immunizations Immunization Administration Dates Next Due Covid-19, Pfizer, mRNA, Blount valent, PF 30 mcg/0.3 mL dose (for ages 12 and older) 04/24/2020,04/23/2020,04/02/2020 Diphtheria, Tetanus Toxoids and Acellular Pertussis Vaccine 12/05/2014 Diphtheria, Tetanus Toxoids and Acellular Pertussis Vaccine, Unspecified Formulation 04/28/1985,04/28/1982,07/29/1981,1980 Hep B, Unspecified 10/07/2005,03/06/2004 Hepatitis B adult (ENGERIX-B ADULT) vaccine 1 mL IM 10/07/2005,03/06/2004 INFLUENZA, SPLIT VIRUS, TRIVALENT, PF 11/11/2014 Influenza Whole 12/18/2019,12/18/2018 Influenza, Injectable, Madin Laura Canine Kidney, Preservative Free, Quadrivalent 11/26/2019 Influenza, Injectable, Quadr ivalent, Preservative Free 01/05/2021,12/18/2018,11/16/2017 Influenza, Trivalent, MDV, Injectable ,01/05/2021,11/26/2019,2017,12/16/2015,11/11/2014,01/29/2010 Influenza, Unspecified 01/30/2022 Measles, Mumps, and Rubella Vaccine 07/14/1992,0 05/02/1985,04/04/1985 Td(Adult) Unspecified Formulation 03/04/2004,02/1988 Tetanus Toxoid, Reduced Diph theria Toxoid, and Acellular Pertussis Vaccine, Adsorbed 12/05/2014,07/25/2012 Tetanus and Diphtheria Toxoi ds, Adsorbed, Preservative Free (2 Lf of Tetanus Toxoid and 2 Lf of Diphtheria Toxoid) 04/28/1988 Trivalent Poliovirus Vaccine , Live, Oral 04/28/1988,04/28/1985,04/28/1982,1981,1980 Family History Medical History Relation Name Comments Fainting Father Alcohol abuse Mother Hypertension Mother Relation Name Status Comments Father Alive Mother Alive Son 1 Alive Son 2 Alive Social History Tobacco Use Types Packs/Day Years Used Date Smoking Tobacco: Never Smokeless Tobacco: Never Tobacco Cessation:Counseling Given: Not Answered Alcohol Use Standard Drinks/Week Comments Not Currently 0 (1 standard drink = 0.6 oz pur e alcohol) Comments No Sex and Gender Information Value Date Recorded Sex Assigned at Female 09/18/2020 5:44 PM EDT Legal Sex Female 8:37 AM EDT Gender Identity Female 09/18/2020 5:44 PM EDT Sexual Orientation Straight 09/18/2020 5: 44 PM EDT Last Filed Vital Signs Vital Sign Reading Time Taken Comments Blood Pressure 123/74 10/19/2022 9:30 AM EDT Pulse 103 10/19/2022 9:30 AM EDT Temperature 36.5 ??C (97.7 ??F) 10/19/2022 9:15 AM ED T Respiratory Rate 17 10/19/2022 9:30 AM EDT Oxygen Saturation 95% 10/19/2022 9:30 AM EDT Inhaled Oxygen Concentration - - Weight 61.2 kg (135 lb) 10/19/2022 6:24 AM EDT Height 160 cm (5' 3 ) 10/19/2022 6:24 AM EDT Body Mass Index 23.91 10/19/2022 6:24 AM EDT Plan of Treatment Health Maintenance Due Date Last Done Comments HIV Screening 1980 HPV and Pap Smear 1980 Hepatitis C Screening 1980 Varicella Vaccines (1 of 2 - 13+ 2-dose series) 1993 Cervical Cancer Screening 04/29/2020 Pap Smear 04/29/2020 04/29/2017 Mammogram 2020 COVID-19 Vaccine ( season) 2023 01/31/2021, 04/24/2020, 04/23/2020, Additional history exists Alcohol/Substance Use Screening 02/29/2024 Depression Screening and Follow-Up 02/29/2024 Social Drivers of Health Annual Screening 02/29/2024 DTaP,Tdap,and Td Vaccines (8 - Td or Tdap) 12/05/2024 12/05/2014, 12/05/2014, 07/25/2012, Additional history exists RSV Vaccine (60+ years old and patients) (1 - 1-dose 75+ series) 11/09/2055 Hepatitis B Vaccines Completed 11/16/2022, 10/07/2005, 10/07/2005, Additional history exists Influenza Vaccine Completed 12/19/2023, , 11/16/2022, Additional history exists Pneumococcal Vaccine: Pediatric (0-5 Years) and At-Risk Patients (6-50 Years) Aged Out No longer eligible based on patient's age to complete this topic Medical Devices Implanted Type Area Profile Trimmer Device Identifier Shelf Expiration Date Model / Serial / Lot System Lead Directional Dbs 1.5mm Spacing 42cm Sensight - [id number] - [id number] Implanted:Qty: 1 on 06/09/2021 by Maribell Coon MD PhD at [facility] Implant Right: Brain Medtronic 02/18/2023 [id number] / [id number] / Battery Neurostimulator Dbs Pc Percept - [id number] - [id number] Implanted:Qty: 1 on 06/23/2021 by Maribell Coon MD PhD at [facility] Implant Right: Chest Medtronic 02/24/2023 [id number] / [id number] / System Lead Directional Marked Dbs 1.5mm Spacing 42mm Sensight - [id number] - [id number] Implanted:Qty: 1 on 12/22/2021 by Maribell Coon MD PhD at [facility] Implant Left: Cranial Medtronic 08/20/2023 [id number] / [id number] / Sensight Enrique Hole Device Kit Implanted:Qty: 1 on 12/22/2021 by Maribell Coon MD PhD at [facility] Left: Cranial Medtronic 02/13/2023 [id number] / / [id number] Insurance [facility] Advance Directives * Full Code (Latest Code Status on File) Date Activated Date Inactivated Comments 10/19/2022 6:13 AM 10/19/2022 1:09 PM * Full Code Date Activated Date Inactivated Comments 01/05/2022 11:17 AM 01/07/2022 6:18 AM * Full Code Date Activated Date Inactivated Comments 12/22/2021 12:54 PM 12/23/2021 5:24 PM * Full Code Date Activated Date Inactivated Comments 12/22/2021 6:25 AM 12/22/2021 12:54 PM * Full Code Date Activated Date Inactivated Comments 06/23/2021 11:20 AM 06/24/2021 6:15 PM Healthcare Agents on File Name Relationship [facility] Sravan Juve Spouse Health Care Agent [email or web address] Care Teams Development Assistant Relationship Specialty Start Date End Date Kye Sampson [address] [place] [id number] PCP - General Internal Medicine 07/25/20
--- OUTSIDE RECORDS SUMMARY | 2024-07-16 15:13 | XMS_ITS | Encounter Summary ---
Author Organization [facility] Address [address] [place] [address] Care Team Providers Care Extrusion Process Operator Name Role Phone Kye Sampson Primary Care Provider [phone] Encounter Details Date Type Department Care Team (Late st Contact Info) Description 02/16/2022 myChart Message [facility] Financial Counseling Department [address] [place] [id number] Mychart, Generic Provider [address] [place], [place] [id number] Financial Assistance Social History Tobacco Use Types Packs/Day Years [...] on filedocumented in this encounter Care Teams Extrusion Process Operator Relationship Specialty Start Date End Date Kye Sampson [address] [place] [id number] PCP - General Internal Medicine 07/25/20 documented as of this encounter
--- OUTSIDE RECORDS SUMMARY | 2024-07-16 15:13 | XMS_ITS | Encounter Summary ---
Author Organization [facility] Address [address] [place] [address] Care Team Providers Care Financial Accounting Analyst Name Role Phone Kye Sampson Primary Care Provider [phone] Encounter Details Date Type Department Care Team (Late st Contact Info) Description 04/24/2021 [employer] Message [facility] [address] [place], [place] [phone] Jumana Soriano NP [address] [place] [address] Appointment Social History Tobacco Use Types Packs/Day Years [...] on filedocumented in this encounter Care Teams Financial Accounting Analyst Relationship Specialty Start Date End Date Kye Sampson [address] [place] [id number] PCP - General Internal Medicine 07/25/20 documented as of this encounter
--- OUTSIDE RECORDS SUMMARY | 2024-07-16 15:13 | XMS_ITS | Encounter Summary ---
Author Organization [facility] Address [address] [place] [address] Care Team Providers Care Supervisor Winding Department Name Role Phone Kye Sampson Primary Care Provider [phone] Encounter Details Date Type Department Care Team (Late st Contact Info) Description 02/23/2022 myChart Message [facility] Financial Counseling Department [address] [place] [address] Mychart, Generic Provider [address] [place], [place] [phone] Financial Assistance Social History Tobacco Use Types [...] on filedocumented in this encounter Care Teams Supervisor Winding Department Relationship Specialty Start Date End Date Kye Sampson [address] [place] [address] PCP - General Internal Medicine 07/25/20 documented as of this encounter
--- OUTSIDE RECORDS SUMMARY | 2024-07-16 15:13 | XMS_ITS | Encounter Summary ---
Author Organization [facility] Address [address] [place] [address] Care Team Providers Care Conveyor Line Battery Charger Name Role Phone Kye Sampson Primary Care Provider [phone] Encounter Details Date Type Department Care Team (Late st Contact Info) Description 10/27/2020 myChart Message [facility] Neurology Clinic [address] [place], [place] [phone] Jumana Soriano NP [address] [place] [address] Disability Social History Tobacco Use Types Packs/Day Years [...] on filedocumented in this encounter Care Teams Conveyor Line Battery Charger Relationship Specialty Start Date End Date Kye Sampson [address] [place] [address] PCP - General Internal Medicine 07/25/20 documented as of this encounter
--- OUTSIDE RECORDS SUMMARY | 2024-07-16 15:13 | XMS_ITS | Referral Summary ---
Author Organization [facility] Address [address] [place] [address] Care Team Providers Care Nurse Research Name Role Phone Kye Sampson Primary Care Provider [phone] Encounters Date Type Department Care Team Description 06/28/2024 [employer] Message [facility] [address] [place] [address] Maribell Coon MD PhD MRI 06/22/2024 [employer] Message [facility] [address] [place] [address] Jumana Soriano NP Canceled appointment 05/05/2024 [email or web address] [facility] [address] [place] [address] Jumana Soriano NP Appointment from Last 3 Months Allergies Active Allergy Reactions Criticality Noted Date [...] this yet. -requested office notes from [facility] ([facility]) from original neurologist regarding medications tried -consider trial of topiramate -follow-up with Jumana in 4-6 weeks for pre-DBS screening Immunizations Immunization Administration Dates Next Due Covid-19, Pfizer, mRNA, Uintah valent, PF 30 mcg/0.3 mL dose (for [...] Trivalent Poliovirus Vaccine , Live, Oral 04/28/1988,04/28/1985,04/28/1982,1981,1980 Social History Tobacco Use Types Packs/Day Years [...] 10/19/2022 6:24 AM EDT Plan of Treatment Not on file Medical Devices Implanted Type Area Legal Director Device Identifier Shelf Expiration Date Model / Serial / Lot System Lead Directional Dbs 1.5mm Spacing 42cm Sensight - [id number] - [id number] Implanted:Qty: 1 on 06/09/2021 by Maribell Coon MD PhD at [facility] [place] Implant Right: Brain Medtronic 02/18/2023 [id number] / [id number] / Battery Neurostimulator Dbs Pc Percept - [id number] - [id number] Implanted:Qty: 1 on 06/23/2021 by Maribell Coon MD PhD at [facility] [place] Implant Right: Chest Medtronic 02/24/2023 [id number] / [id number] / System Lead Directional Marked Dbs 1.5mm Spacing 42mm Sensight - [id number] - [id number] Implanted:Qty: 1 on 12/22/2021 by Maribell Coon MD PhD at [facility] [place] Implant Left: Cranial Medtronic 08/20/2023 [id number] / [id number] / Sensight Enrique Hole Device Kit Implanted:Qty: 1 on 12/22/2021 by Maribell Coon MD PhD at [facility] [place] Left: Cranial Medtronic 02/13/2023 [id number] / / [id number] Insurance [facility] Advance Directives * Full Code (Latest Code [...] Agents on File Name Relationship Healthcare Agent [facility] p Communication Sravan An Spouse Health Care Agent [email or web address] Care Teams Nurse Research Relationship Specialty Start Date End Date Kye Sampson [address] [place] [phone] PCP - General Internal Medicine 07/25/20
--- OUTSIDE RECORDS SUMMARY | 2024-07-16 15:13 | XMS_ITS | Encounter Summary ---
Author Organization [facility] Address [address] [place] [address] Care Team Providers Care Team Assembly Line Machine Operator Name Role Phone IronKye barrera Primary Care Provider [phone] Reason for Referral * Diagnostic Imaging (Routine) - Closed Specialty Diagnoses / Procedures Referred By Keron pacheco Referred To Contact Diagnoses Essential tremor Procedures NM Brain Scan Datscan Spect Jumana Soriano NP [address] [place] [address] Phone: tel: fax: Referral ID Status Reason Start Date Expiration Date Visits Re quested Visits Authorized [id number] Closed 11/24/2020 05/26/2022 2 2 Encounter Details Date Type Department Care Team (Late st Contact Info) Description 11/24/2020 Orders Only [facility] Neurology [facility] [address] [place] [address] Jumana Soriano NP [address] [place] [phone] Essential tremor (Primary Dx) Social History Tobacco Use Types Packs/Day Years [...] on file documented as of this encounter Results * Due to [place] state law, this organization might not be sharing negative HIV tests. * NM Brain Scan Datscan Spect (01/01/2021 3:59 PM EDT) Anatomical Region Laterality Modality Head and Neck Nuclear Medicine 01/02/2021 8:27 AM EDT Impressions 01/05/2021 11:13 AM EST No evidence of dopaminergic neurodegenerative disease. I, Torsten Kent, have reviewed the examination and concur with the findings as reported or so edited. Resident/Fellow:Patrick Whatley If this radiology report contains a blank impression section, it is an incomplete radiology report. ??Please contact the interpreting radiologist or applicable radiology division as soon as possible to obtain the completed interpretation. ? Workstation ID: [id number] Narrative 01/05/2021 11:13 AM EST EXAMINATION: DATscan. INDICATION: ??Evaluate for evidence of Parkinsonian pathology. ? TECHNIQUE: 5.4 mCi of [id number] ??were injected IV. ??At 3hrs after injection, SPECT was performed over a 35 minute time period. ??Sagittal, coronal, and transverse tomographic sections were reconstructed. COMPARISON: None. FINDINGS: The scan demonstrates symmetrical and robust striatal activity. ? Using region of interest measurements, the binding ratios (BR) of caudate and putamen relative to occipital cortex is as follows: Caudate: Rt 4.8 ??Lt 4.9 Putamen: Rt 4.2 ??Lt 4.1 Resulting Agency Comment [id number] Procedure Note Torsten Kent MD - 01/05/2021 EXAMINATION: DATscan. INDICATION: Evaluate for evidence of Parkinsonian pathology. TECHNIQUE: 5.4 mCi of [id number] were injected IV. At 3hrs afterinjection, SPECT was performed over a 35 minute time period. Sagittal,coronal, and transverse tomographic sections were reconstructed. COMPARISON: None. FINDINGS: The scan demonstrates symmetrical and robust striatal activity. Using region of interest measurements, the binding ratios (BR) of caudateand putamen relative to occipital cortex is as follows: Caudate: Rt 4.8 Lt 4.9 Putamen: Rt 4.2 Lt 4.1 IMPRESSION: No evidence of dopaminergic neurodegenerative disease. I, Torsten Kent, have reviewed the examination and concur with thefindings as reported or so edited. Resident/Fellow:Patrick Whatley If this radiology report contains a blank impression section, it is anincomplete radiology report. Please contact the interpreting radiologistor applicable radiology division as soon as possible to obtain thecompleted interpretation. Workstation ID: [id number] us Jumana Soriano DOLL EYE SETTER IMG NM PROCEDURES Final Result documented in this encounter Visit Diagnoses Diagnosis Essential tremor- Primary Essential tremor documented in this encounter Care Teams Team Assembly Line Machine Operator Relationship Specialty Start Date End Date Kye Sampson [address] [place] [phone] PCP - General Internal Medicine 07/25/20 documented as of this encounter
--- OUTSIDE RECORDS SUMMARY | 2024-07-16 15:13 | XMS_ITS | Encounter Summary ---
Author Organization [facility] Address [address] [place] [address] Care Team Providers Care Right Of Way Maintenance Supervisor Name Role Phone Kye Sampson Primary Care Provider [phone] Encounter Details Date Type Department Care Team (Late st Contact Info) Description 02/12/2022 [employer] Message [facility] Neurology Clinic [address] [place], [place] [phone] Jumana Soriano NP [address] [place] [address] Insurance change Social History Tobacco Use Types Packs/Day Years [...] on filedocumented in this encounter Care Teams Right Of Way Maintenance Supervisor Relationship Specialty Start Date End Date Kye Sampson [address] [place] [address] PCP - General Internal Medicine 07/25/20 documented as of this encounter
--- OUTSIDE RECORDS SUMMARY | 2024-07-16 15:14 | XMS_ITS | Encounter Summary ---
Author Organization [facility] Address [address] [place] [address] Care Team Providers Care Environmental Health Technician Name Role Phone Kye Sampson Primary Care Provider Encounter Details Date Type Department Care Team (Late st Contact Info) Description 04/06/2022 [employer] Message [facility] Neurology Clinic [address] [place] [address] Jumana Soriano NP [address] [place] [address] DBS Social History Tobacco Use Types Packs/Day Years [...] on filedocumented in this encounter Care Teams Environmental Health Technician Relationship Specialty Start Date End Date Kye Sampson [address] [place] [phone] PCP - General Internal Medicine 07/25/20 documented as of this encounter
--- OUTSIDE RECORDS SUMMARY | 2024-07-16 15:14 | XMS_ITS | Encounter Summary ---
Author Organization [facility] Address [address] [place] [address] Care Team Providers Care Ladle Liner Helper Name Role Phone Kye Sampson Primary Care Provider [phone] Encounter Details Date Type Department Care Team (Late st Contact Info) Description 01/02/2021 myChart Message [facility] Neurology Clinic [address] [place], [place] [phone] Jumana Soriano NP [address] [place] [address] Wellbutrin 150mg Social History Tobacco Use Types Packs/Day Years [...] on filedocumented in this encounter Care Teams Ladle Liner Helper Relationship Specialty Start Date End Date Kye Sampson [address] [place] [address] PCP - General Internal Medicine 07/25/20 documented as of this encounter
--- OUTSIDE RECORDS SUMMARY | 2024-07-16 15:14 | XMS_ITS | Encounter Summary ---
Author Organization [facility] Address [address] [place] [address] Care Team Providers Care Connie Scratcher Name Role Phone Kye Sampson Primary Care Provider [phone] Encounter Details Date Type Department Care Team (Late st Contact Info) Description 08/14/2021 Telephone [facility] Neurology Clinic [address] [place] [address] Telephone Intake, Staff Social History Tobacco Use Types Packs/Day Years [...] PM EDT documented as of this encounter Miscellaneous Notes * Telephone Encounter - Leonor Yu - 08/14/2021 3:17 PM EDT Skip De La Rosa called with her updated insurance information. Already submitted it into her chart. documented in this encounter Plan of Treatment Not on file documented as of this encounter Visit Diagnoses Not on filedocumented in this encounter Care Teams Connie Scratcher Relationship Specialty Start Date End Date Kye Sampson [address] [place] [address] PCP - General Internal Medicine 07/25/20 documented as of this encounter
--- OUTSIDE RECORDS SUMMARY | 2024-07-16 15:14 | XMS_ITS | Encounter Summary ---
Author Organization [facility] Address [address] [place] [address] Care Team Providers Care Inner Layer Scrubber Tender Name Role Phone Kye Sampson Primary Care Provider [phone] Encounter Details Date Type Department Care Team (Late st Contact Info) Description 07/23/2021 Gez[employer] Message [facility] Neurology Clinic [address] [place], [place] [phone] Maggie Magaña MD [address] [place], [place] [phone] Student Lomanda Rooseveltmonserratlarissa Social History Tobacco Use Types Packs/Day Years [...] encounter Miscellaneous Notes * Telephone Encounter - Navneet Quan MD - 07/29/2021 2:20 PM EDT You can reassess when Dr. Magaña comes back, especially after assessing the effects of DBS surgery. documented in this encounter Plan of Treatment Not on file documented as of this encounter Visit Diagnoses Not on filedocumented in this encounter Care Teams Inner Layer Scrubber Tender Relationship Specialty Start Date End Date Kye Sampson [address] [place] [address] PCP - General Internal Medicine 07/25/20 documented as of this encounter
--- OUTSIDE RECORDS SUMMARY | 2024-07-16 15:14 | XMS_ITS | Encounter Summary ---
Author Organization [facility] Address [address] [place] [address] Care Team Providers Care Tempering Oven Operator Name Role Phone Kye Sampson Primary Care Provider [phone] Encounter Details Date Type Department Care Team (Late st Contact Info) Description 03/25/2022 myChart Message [facility] Financial Counseling Department [address] [place] [address] Mychart, Generic Provider [address] [place], [place] [phone] Financial Assistance Request Social History Tobacco Use Types Packs/Day Years [...] on filedocumented in this encounter Care Teams Tempering Oven Operator Relationship Specialty Start Date End Date Kye Sampson [address] [place] [address] PCP - General Internal Medicine 07/25/20 documented as of this encounter
--- OUTSIDE RECORDS SUMMARY | 2024-07-16 15:14 | XMS_ITS | Encounter Summary ---
Author Organization [facility] Address [address] [place] [address] Care Team Providers Care Centerless Grinder Set Up Operator Name Role Phone Kye Sampson Primary Care Provider [phone] Encounter Details Date Type Department Care Team (Late st Contact Info) Description 07/15/2021 Risk Management Solutiont Message [facility] Neurology Clinic [address] [place], [place] [phone] Jumana Soriano NP [address] [place] [address] Insurance Social History Tobacco Use Types Packs/Day Years [...] on filedocumented in this encounter Care Teams Centerless Grinder Set Up Operator Relationship Specialty Start Date End Date Kye Sampson [address] [place] [address] PCP - General Internal Medicine 07/25/20 documented as of this encounter
--- OUTSIDE RECORDS SUMMARY | 2024-07-16 15:14 | XMS_ITS | Encounter Summary ---
Author Organization [facility] Address [address] [place] [address] Care Team Providers Care Hand Molder Name Role Phone Kye Sampson Primary Care Provider [phone] Encounter Details Date Type Department Care Team (Late st Contact Info) Description 03/17/2022 myChart Message [facility] Financial Counseling Department [address] [place] [phone] Mychart, Generic Provider [address] [place], [place] [phone] financial assistance Social History Tobacco Use Types Packs/Day Years [...] on filedocumented in this encounter Care Teams Hand Molder Relationship Specialty Start Date End Date Kye Sampson [address] [place] [address] PCP - General Internal Medicine 07/25/20 documented as of this encounter
--- OUTSIDE RECORDS SUMMARY | 2024-07-16 15:14 | XMS_ITS | Encounter Summary ---
Author Organization [facility] Address [address] [place] [address] Care Team Providers Care Criminal Records Technician Name Role Phone Kye Sampson Primary Care Provider [phone] Encounter Details Date Type Department Care Team (Late st Contact Info) Description 08/29/2021 myChart Message [facility] Neurology Clinic [address] [place], [place] [phone] Jumana Soriano NP [address] [place] [address] DBS Surgery list Social History Tobacco Use Types Packs/Day Years [...] on filedocumented in this encounter Care Teams Criminal Records Technician Relationship Specialty Start Date End Date Kye Sampson [address] [place] [address] PCP - General Internal Medicine 07/25/20 documented as of this encounter
--- OUTSIDE RECORDS SUMMARY | 2024-07-16 15:14 | XMS_ITS | Encounter Summary ---
Author Organization [facility] Address [address] [place] [address] Care Team Providers Care Metal Sheet Roller Operator Name Role Phone Kye Sampson Primary Care Provider [phone] Encounter Details Date Type Department Care Team (Late st Contact Info) Description 12/11/2020 myChart Message [facility] Neurology Clinic [address] [place], [place] [address] Jumana Soriano NP [address] [place] [address] Haven't heard anything Social History Tobacco Use Types Packs/Day Years [...] on filedocumented in this encounter Care Teams Metal Sheet Roller Operator Relationship Specialty Start Date End Date Kye Sampson [address] [place] [address] PCP - General Internal Medicine 07/25/20 documented as of this encounter
--- OUTSIDE RECORDS SUMMARY | 2024-07-16 15:14 | XMS_ITS | Encounter Summary ---
Author Organization [facility] Address [address] [place] [address] Care Team Providers Care Wind Farm Operations Manager Name Role Phone Kye Sampson Primary Care Provider [phone] Encounter Details Date Type Department Care Team (Late st Contact Info) Description 07/15/2021 Agility Communicationst Message [facility] Neurology Clinic [address] [place] [address] Catrachita Lopez LICSW [address] [place] [address] Please call me again Social History Tobacco Use Types Packs/Day Years [...] on filedocumented in this encounter Care Teams Wind Farm Operations Manager Relationship Specialty Start Date End Date Kye Sampson [address] [place] [address] PCP - General Internal Medicine 07/25/20 documented as of this encounter
--- OUTSIDE RECORDS SUMMARY | 2024-07-16 15:14 | XMS_ITS | Encounter Summary ---
Author Organization [facility] Address [address] [place] [address] Care Team Providers Care Contracts Administrator Name Role Phone Kye Sampson Primary Care Provider [phone] Encounter Details Date Type Department Care Team (Late st Contact Info) Description 02/08/2022 [employer]ikt Message [facility] Neurology Clinic [address] [place], [place] [phone] Jumana Soriano NP [address] [place] [address] Insurance question Social History Tobacco Use Types Packs/Day Years [...] on filedocumented in this encounter Care Teams Contracts Administrator Relationship Specialty Start Date End Date Kye Sampson [address] [place] [address] PCP - General Internal Medicine 07/25/20 documented as of this encounter
--- OUTSIDE RECORDS SUMMARY | 2024-07-16 15:14 | XMS_ITS | Encounter Summary ---
Author Organization [facility] Address [address] [place] [address] Care Team Providers Care Wet Cotton Feeder Name Role Phone Kye Sampson Primary Care Provider [phone] Encounter Details Date Type Department Care Team (Late st Contact Info) Description 02/22/2021 myChart Message Intial Department [address] [place] [phone] Mychart, Generic Provider [address] [place], [place] [phone] Questionnaire Submission Social History Tobacco Use Types Packs/Day Years [...] on filedocumented in this encounter Care Teams Wet Cotton Feeder Relationship Specialty Start Date End Date Kye Sampson [address] [place] [address] PCP - General Internal Medicine 07/25/20 documented as of this encounter
--- OUTSIDE RECORDS SUMMARY | 2024-07-16 15:14 | XMS_ITS | Encounter Summary ---
Author Organization [facility] Address [address] [place] [address] Care Team Providers Care Manufacturing Shift Supervisor Name Role Phone Kye Sampson Primary Care Provider [phone] Encounter Details Date Type Department Care Team (Late st Contact Info) Description 02/04/2021 NileGuidet Message [facility] Neurology Clinic [address] [place] [address] Jumana Soriano NP [address] [place] [address] Question Social History Tobacco Use Types Packs/Day Years [...] on filedocumented in this encounter Care Teams Manufacturing Shift Supervisor Relationship Specialty Start Date End Date Kye Sampson [address] [place] [address] PCP - General Internal Medicine 07/25/20 documented as of this encounter
--- NOTE | 2024-07-16 15:23 | MHC.OFFVIS ---
Intake Visit Reasons: kidney stone/hydronephrosis Intake Note: New patient presents today for initial visit for Urology Medication:None Blood Thinner:none Antibiotic Allergies:None Allergies acetaminophen (From Percocet) Allergy (Intermediate, Verified 07/16/24 15:52) nausea, vomiting oxycodone (From Percocet) Allergy (Intermediate, Verified 07/16/24 15:52) nausea, vomiting HPI Comments Details: 07/16/24--Donna is a 43 year old female who was evaluated in the ED on 04/02/24 for right flank pain. CTAP noted a small distal right ureteral stone. The patient is currently asymptomatic and thinks she passed the stone. I have discussed diet modification to decrease risk of forming more kidney stones. I have discussed low oxalate diet and specific foods to avoid including certain green leafy vegetables, chocalate, nuts, tea, beets, rubarb; low sodium, decreased use of animal protein and the importance of hydration drinking up to 2-2.5 liters of fluids and use of adding lemon to water to increase citrate in the diet. Will check 24 hr urine. Results --04/02/24--Mild right hydronephrosis and right hydroureter secondary to a 3 mm right ureterovesicular junction calculus. Review of Systems Const All systems reviewed & are unremarkable except as noted in HPI and below Reports no additional complaints Eyes Reports no additional complaints ENT Reports no additional complaints Card Reports no additional complaints Resp Reports no additional complaints GI Reports no additional complaints Reports as per HPI Musc Reports no additional complaints Skin/Breast Reports system reviewed and no additional complaints, except as documented Neuro Reports no additional complaints Psych Reports no additional complaints Endo Reports no additional complaints Mike/Lymph Reports no additional complaints Aller/Immun Reports no additional complaints Physical Exam Const General: cooperative, healthy appearing and no acute distress Orientation/consciousness: patient oriented x3 HEENT Head: Yes normal to inspection, Yes normocephalic and Yes atraumatic Eyes Conjunctivae: conjunctivae normal Neck Neck: Yes normal visual inspection and Yes trachea midline Chest Chest palpation & inspection: normal inspection of the chest Resp Effort & Inspection: normal respiratory effort GI Inspection: Yes normal to inspection Neuro General: patient oriented x3 Psych Appearance: grossly normal Results Reviewed Results Reviewed: Date of Service: 04/02/24 CLINICAL HISTORY: right sided abd pain Exam: CT abdomen and pelvis with intravenous contrast. Comparison: January 24, 2024. Findings: CT abdomen: No infiltrates are identified within the lung bases. Unchanged densely calcified 4 mm granuloma within the left lower lobe. No acute bony lesions. Low-attenuation within the liver adjacent to the falciform ligament is indicative of focal fatty infiltration. No concerning hepatic mass lesion. Main portal vein is patent. Spleen, pancreas, gallbladder, and adrenal glands are unremarkable. Right-sided hydronephrosis on prior study is improved. However, there remains mild right hydronephrosis and right hydroureter. There is hyperenhancement of the distal right ureter at the level of a 3 mm calculus at the right ureterovesicular junction. No stones are seen within the right kidney. Left kidney is unremarkable. Small bowel loops are of normal caliber. No free fluid or free air. CT pelvis: Urinary bladder is moderately distended. No bladder calculi. No colonic wall thickening or pericolonic inflammatory stranding. No free fluid or free air. Impression: Mild right hydronephrosis and right hydroureter secondary to a 3 mm right ureterovesicular junction calculus. Assessment & Plan Assessment & Plan (1) Ureteral stone: Code(s): N20.1 - Calculus of ureter Category: Medical (2) Hydronephrosis, right: Code(s): N13.30 - Unspecified hydronephrosis Category: Medical Plan 24 hr urine Orders: Orders AMB Urinalysis Automated 07/19/24 Z13.9 - Encounter for screening, unspecified Patient Instructions: The patient had an opportunity to ask questions regarding treatment plan. The patient expressed understanding and agreement with the above treatment plan. The patient is aware they should contact our office by phone for worsening of their current condition or the appearance of new symptoms. Compliance is encouraged with any medications and followup testing that is ordered. It is a privilege to be allowed the opportunity to participate in the urologic care of your patient. If you have any questions or concerns regarding treatment for the above conditions please do not hesitate to contact me. The office telephone contact is [phone]. This note is constructed in part using voice recognition software. While every effort has been made to ensure accuracy pricing associate errors may have been included. Yours sincerely, Trera Early MD Coding Level of Care Code New Pt Level 3 (06309) Diagnoses Ureteral stone N20.1 Hydronephrosis, right N13.30
== END 2024-07-16 16:30 | disposition home or self-care (01) ==
LOC: HO.HUSH 15:11
PROVIDERS: PCP Physician Assistant; Visit Provider Urology
DX: N20.1 Calculus of ureter (principal); N13.30 Unspecified hydronephrosis
CPT/HCPCS: 99203

== ENCOUNTER → 2024-07-16 15:10 | Outpatient (BNVA) | payer OTHER, MEDICAID, SELFPAY | PROVIDERS: PCP Physician Assistant; Visit Provider Urology ==

== ENCOUNTER → 2024-07-19 15:27 | Outpatient (BNV) | payer OTHER, MEDICAID, SELFPAY | PROVIDERS: PCP Physician Assistant; Visit Provider Urology | DX: Z13.9 Encounter for screening, unspecified (principal) | CPT/HCPCS: 81003 ==